=== PATIENT | female | born 1940 | race Caucasian/White ===

== ENCOUNTER → 2020-05-28 | Outpatient (CLI) | payer MEDICARE ==
[~2020-05-28] MED LIST: CALC500T31 PO; CLONAZEPAM1 MG PO; DENO60DI SQ; ESCI5SOL9 PO; LEVO50TA5 PO; LORA10TA3 PO; MELO15TA23 PO; MULT-246 PO; OMEG1CAP50 PO; OMEP20CA16 PO
== END ==
LOC: LAB 12:10
PROVIDERS: ATTEND Surgery
DX: Z01.812 Encounter for preprocedural laboratory examination (principal); Z20.828 Contact with and (suspected) exposure to other viral communicable diseases
CPT/HCPCS: U0003-CS

== ENCOUNTER 2020-06-01 06:15 | Inpatient (IN) | payer MEDICARE ==
[2020-06-01] VITALS (13 sets, daily range): BP systolic 112–143; BP diastolic 59–96
[~2020-06-01] VITALS: Ht 152.4 cm; Wt 68.0 kg
[2020-06-01] MEDS ORDERED: fentaNYL PF VIAL 100 MCG/2 ML VIAL ONE ×3 (06:58→10:28)
[2020-06-01] MEDS ORDERED: ONDANSETRON PF 4 MG/2 ML VIAL. ONE (06:59)
[2020-06-01] MEDS ORDERED: PROPOFOL 10 MG/ML (20ML) VIAL. IV ONE (06:59)
[2020-06-01] MEDS ORDERED: ROCURONIUM 50 MG/5 ML VIAL. ONE (06:59)
[2020-06-01] MEDS ORDERED: IV RINGERS,LACTATED 1000ML 1,000 ML IV SCH (07:00)
[2020-06-01] MEDS ORDERED: PROCHLORPERAZINE 10 MG/2 ML VIAL. IV PRN ×2 (07:00→11:45)
[2020-06-01] MEDS ORDERED: SUCCINYLCHOLINE 200 MG/10 ML VIAL. ONE (07:00)
[2020-06-01] MEDS ORDERED: LIDOCAINE 1% PF 2 ML VIAL. ID PRN (07:00)
[2020-06-01] MEDS ORDERED: fentaNYL PF VIAL 100 MCG/2 ML VIAL IV PRN (07:00)
[2020-06-01] MEDS ORDERED: HYDROmorphone 2 MG/ML VIAL IV PRN (07:00)
[2020-06-01] MEDS ORDERED: LIDOCAINE 2% PF 5 ML VIAL. ONE (07:01)
[2020-06-01] MEDS ORDERED: DEXAMETHASONE SOD PHOS 4 MG/ML VIAL ONE (07:02)
[2020-06-01] MEDS ORDERED: BUPIVACAINE-EPI 0.5%-1:200000 MPF 30 ML VIAL. ONE (07:23)
[2020-06-01] MEDS ORDERED: SURGICEL HEMOSTAT 4X8 EACH. ONE ×2 (07:24)
[2020-06-01] MEDS ORDERED: GLYCOPYRROLATE 1 MG/5 ML VIAL. ONE (07:50)
[2020-06-01] MEDS ORDERED: SEVOFLURANE > 120 MINUTES. IH ONE (07:52)
[2020-06-01] MEDS ORDERED: NEOSTIGMINE 10 MG/10 ML VIAL. ONE (09:27)
[2020-06-01] MEDS: fentaNYL PF VIAL 100 MCG/2 ML VIAL IV PRN ×4 (11:14→13:36)
[2020-06-01] MEDS ORDERED: IV NORMAL SALINE 1000ML BAG 1,000 ML IV SCH (11:32)
--- NOTE | 2020-06-01 11:32 | PDOC4 ---
Operative Note Operative Note Operative Note: Preoperative Diagnosis: Large hiatal hernia with gastroesophageal reflux disease Postoperative Diagnosis: Same Procedure: Laparoscopic repair of large hiatal hernia with Sue fundoplication Surgeon: Eder Rader.: Dr. Cooley Anesthesia: Gen. Estimated Blood Loss: 20 mL Specimen: Hernia sac to pathology Drains: None Complications: None Indications: The patient is a 79 year old female who was referred by the GI service due to a very large hiatal hernia She was referred for surgical repair. The risks of surgery were discussed which include bleeding, infection, recurrent herniation, gastric or esophageal perforation, visceral injury, recurrent reflux, gas bloat syndrome, dysphasia, potential need for additional surgeries or procedures. She understands and would like to proceed. Description: The patient was taken to the operating room and placed supine on the operating table. General anesthesia was performed. The patient was then placed in lithotomy. The abdomen was prepped with ChloraPrep and draped in a standard surgical fashion. A small incision was made superior to and to the patient's left of the umbilicus through which a visualized 5 mm trocar was inserted. A pneumoperitoneum was then created and the laparoscope was introduced. In the right lateral abdomen a 12 mm trocar was inserted through which a soft fan retractor was used to elevate the left lobe of the liver. In the right upper quadrant a 5 mm trocar was inserted. In the left upper quadrant an 11 mm trocar was inserted while in the left lateral abdomen a 5 mm trocar was inserted. Attention was then directed to the diaphragmatic hiatus. As expected there was a very large hiatal hernia defect with virtually all of the stomach present in the chest. A large amount of stomach and omentum was pulled out of the chest and able to be reduced. There was also some transverse colon which was reduced out of the hiatal hernia. An additional 5 mm trocar was placed to assist with exposure and mobilization. We then began mobilizing the entire hernia sac within the mediastinum. We started this on the right side and began freeing up the sac from the right dank. The Harmonic scalpel assisted for much of this dissection. We continued mobilizing the sac superiorly well into the mediastinum. We continued this dissection anteriorly freeing up the sac and its attachments in this location. The dissection then continued along the left dank and the sac and attachments were mobilized here as well. Due to the large size and redundancy of the sac considerable time was required in freeing this out of the mediastinum. Portions of the redundant sac were also fully excised and sent off to pathology as a specimen. The gastrocolic omentum was then opened with the Harmonic scalpel in the upper portion of the greater curvature. We then freed up the upper part of the greater curvature and fundus using the harmonic scalpel. Large blood vessels were doubly clipped and divided. The dissection continued all the way back up to the left dank and any remaining splenic attachments were also mobilized. At this point the esophagus was readily visualized and we were able to free up the area around his gastroesophageal junction. A Divya drain was then placed around the esophagus at the GE junction and clips were applied holding the [place] in place. With retraction on the Divya we were able to continue freeing up any remaining sac attachments particularly in the posterior location. At this point the GE junction was well within the abdominal cavity. The left and right dank were then reapproximated with interrupted 2-0 silk sutures using the Endo Stitch device. Stitches were applied both anteriorly and posteriorly allowing for closure of the hernia defect. We elected to reinforce the closure with a Phasix ST mesh patch. The mesh was tailored to cover and reinforce the crural repair.. The mesh was then introduced and laid up against the diaphragm and around the esophagus. Initial fixation sutures were placed at the superior corners of the mesh using 2-0 silk. The entire mesh was then fixed to the diaphragm using the Tisseel fibrin glue. The fundus was then wrapped around in a 360 fashion creating the fundoplication. A shoeshine maneuver was used to ensure no twists or kinks. An initial 2-0 Ethibond suture was used securing the fundic lips together. Another suture was placed superior to this which incorporated a small bite of the anterior esophagus. An additional suture was then placed inferiorly completing the fundoplication. The wrap was sutured to the diaphragm muscles on both side of the fundoplication to assist with fixation. At this point hemostasis was good, the hernia was well repaired with good coverage from the mesh, and the fundoplication was intact with a nice orientation. The 11 and 12 mm trochars were then removed and the fascia closed with 0 Vicryl using an Endo Close. The remaining ports were removed and the pneumoperitoneum was relieved. Skin at all incisions was closed with 4-0 Monocryl. Steri-Strips and dressings were applied. The patient tolerated the procedure well. LEA FITZGERALD MD Jun 01, 2020 11:32
[2020-06-01] MEDS ORDERED: 0.9 % SODIUM CHLORIDE 10 ML DISP.SYRIN. IV PRN (11:45)
[2020-06-01] MEDS ORDERED: NALOXONE 0.4 MG/ML VIAL. IV PRN (11:45)
[2020-06-01] MEDS: MORPHINE SULFATE 2 MG/ML VIAL. IV PRN ×2 (11:54→12:03)
[2020-06-01] MEDS: HYDROmorphone 2 MG/ML VIAL IV PRN ×2 (14:58→20:21)
[2020-06-01] MEDS: IV 1/2 NORMAL SALINE 1,000 ML IV SCH (17:00)
[2020-06-02 03:00] VITALS: BP 126/75
[2020-06-02] MEDS: IV 1/2 NORMAL SALINE 1,000 ML IV SCH ×2 (04:53→16:56)
[2020-06-02 07:00] VITALS: BP 134/71
[2020-06-02] MEDS ORDERED: HYDROcodon/APAP 7.5/325MG ORAL 15 ML SOLUTION PO PRN (07:30)
[2020-06-02] MEDS: HYDROmorphone 2 MG/ML VIAL IV PRN (08:04)
--- NOTE | 2020-06-02 09:19 | NUR ---
SW following. Discussed with RN, pt from home, clear liquid diet. Pt was on room air, but is now requiring oxygen again - RN attempting to titrate. SW will continue to follow for any discharge planning needs.
[2020-06-02] MEDS: HYDROcodon/APAP 7.5/325MG ORAL 15 ML SOLUTION PO PRN ×3 (10:50→22:01)
[2020-06-02 11:00] VITALS: BP 134/74
[2020-06-02] MEDS: ONDANSETRON PF 4 MG/2 ML VIAL. IVP PRN (12:09)
--- NOTE | 2020-06-02 12:11 | PDOC ---
CARL BROWNE APRN 06/02/20 1211: SURGICAL PROGRESS NOTE DATE: 06/02/20 TIME: 12:10 Subjective taking clears no reflux pretty sore has not walked yet some shoulder pain Vital Signs Vital Signs Date Time Temp Pulse Resp B/P (MAP) Pulse Ox O2 Delivery O2 Flow Rate FiO2 06/02/20 11:00 98.4 89 16 134/74 (94) 95 Room Air 98.4 06/02/20 10:50 2.0 I&O Intake and Output 06/02/20 06:59 Intake Total 3900 ml Output Total 245 ml Balance 3655 ml Intake Oral 90 ml IV Total 2730 ml Other 1080 ml Output Urine Total 225 ml Estimated Blood Loss 20 ml # Voids 1 General: Alert, Oriented X3, Cooperative Abdomen: Soft, Other (lap sites c/d/i) Assessment/Plan clears, ambulate wean off o2 Justicifation of Admission Dx: Justifications for Admission: Justification of Admission Dx: Yes Comments: s/p edis fundoplication LEA FITZGERALD MD 06/02/20 1300: SURGICAL PROGRESS NOTE Assessment/Plan Reviewed, agree with above CARL BROWNE APRN Jun 02, 2020 12:11 LEA FITZGERALD MD Jun 02, 2020 13:00
[2020-06-02 15:00] VITALS: BP 135/78
--- NOTE | 2020-06-02 18:06 | PATHOLOGY ---
[facility] Accession Number: [id number] . 01 Material submitted: . hernia - HIATAL HERNIA SAC . 01 Clinical history: . HIATAL HERNIA . 02 Diagnosis: Segments of fibromembranous and fibroadipose tissue, laparoscopic hiatal hernia repair: - Hernia sac, with small lymph node showing reactive changes identified. (JPM:certified nurse practitioner; 06/02/2020) MBR 06/02/2020 1553 Local . 02 Electronically signed: . Uday Mcgee MD, Pathologist NPI- [id number] . 01 Gross description: . The specimen is received in formalin, labeled "Marsha Traore, hiatal hernia sac" and consists of multiple segments of pink membranous tissue with attached yellow lobulated tissue measuring 5.8 x 5.5 x 2.0 cm. No gross lesions are identified and administrative representative tissue is submitted in A1. (SDY; 06/01/2020) SYU/SYU 06/02/2020 1551 Local . 02 Pathologist provided ICD-10: K44.9 . 02 CPT . 681579 Specimen Comment: A courtesy copy of this report has been sent to [phone] Specimen Comment: [id number] Specimen Comment: Report sent to / DR RIZVI Performed at: 01 [facility] [address], [place], [place] [id number] MD Tyrone Nickerson MD Phone: [phone] Performed at: 02 [facility] [address] [place], [place] [id number] MD Uday Mcgee MD Phone: [phone]
[2020-06-02 19:00] VITALS: BP 146/66
[2020-06-02 23:00] VITALS: BP 114/66
[2020-06-03] MEDS: IV 1/2 NORMAL SALINE 1,000 ML IV SCH ×3 (01:21→23:35)
[2020-06-03 03:00] VITALS: BP 124/60
--- NOTE | 2020-06-03 03:00 | NUR ---
RN tried to titrate patient down from her oxygen but her oxygen saturation was down to 80% on room air during 0300 vitals. 1L NC was placed back on patient. Will continue to monitor.
[2020-06-03] MEDS: HYDROcodon/APAP 7.5/325MG ORAL 15 ML SOLUTION PO PRN ×2 (05:35→20:26)
[2020-06-03 07:00] VITALS: BP 119/75
--- NOTE | 2020-06-03 09:31 | NUR ---
SW following. Discussed with RN, pt not able to titrate off oxygen. Pt will need a 6 minute walk prior to discharge. SW will continue to follow.
--- NOTE | 2020-06-03 09:39 | PDOC ---
CARL BROWNE APRN 06/03/20 0939: SURGICAL PROGRESS NOTE DATE: 06/03/20 TIME: 09:37 Subjective + flatus tolerating clears no nausea, no reflux coughing up some sputum Vital Signs Vital Signs Date Time Temp Pulse Resp B/P (MAP) Pulse Ox O2 Delivery O2 Flow Rate FiO2 06/03/20 07:32 Nasal Cannula 1.0 06/03/20 07:00 97.9 91 18 119/75 (90) 91 97.9 I&O Intake and Output 06/03/20 06:59 Intake Total 0 ml Balance 0 ml Intake Oral 0 ml # Voids 6 General: Alert, Oriented X3, Cooperative Abdomen: Soft, Other (lap sites c/d/i) Assessment/Plan unable to wean off o2 will check cxr, 6 min walk--if abnormal will consult pulm Full liquid diet Justicifation of Admission Dx: Justifications for Admission: Justification of Admission Dx: Yes LEA FITZGERALD MD 06/03/20 1023: SURGICAL PROGRESS NOTE Assessment/Plan agree with above CARL BRWONE APRN Jun 03, 2020 09:39 LEA FITZGERALD MD Jun 03, 2020 10:23
[2020-06-03 11:00] VITALS: BP 117/63
[2020-06-03] MEDS: ONDANSETRON PF 4 MG/2 ML VIAL. IVP PRN (11:53)
--- NOTE | 2020-06-03 13:43 | RAD ---
EXAM: CHEST PA LATERAL INDICATION: Reason: hypoxia / Spl. Instructions: / History: . TECHNIQUE: PA and lateral views COMPARISON: None FINDINGS: Heart is moderately enlarged The great vessels appear unremarkable. There is no hilar or mediastinal mass. Lungs show ill-defined opacity in the left midlung, superimposed on generalized hyperlucency. There is more focal consolidation of the medial left lung base. Bilateral pleural effusions are present, left greater than right. No pneumothorax. There are no significant osseous abnormalities. Surgical clips in the left upper quadrant abdomen are present. IMPRESSION: COPD and cardiomegaly with left basilar consolidation that could represent pneumonia or pneumonitis. There are also bilateral pleural effusions but no pneumothorax. Electronically signed by: Sharon Marina MD (06/03/2020 1:39 PM) [id number]
[2020-06-03 15:00] VITALS: BP 122/76
[2020-06-03] MEDS ORDERED: FUROSEMIDE 20 MG/2 ML VIAL. IVP ONE (15:30)
[2020-06-03 17:29] LABS: CALCIUM 7.5 mg/dL (8.5-10.1); CREATININE 0.5 mg/dL (0.6-1.0); GFR 119.6
[2020-06-03 17:30] LABS: POTASSIUM 3.5 mmol/L (3.5-5.1)
[2020-06-03 19:00] VITALS: BP 143/71
[2020-06-03 23:00] VITALS: BP 135/54
[2020-06-04 03:00] VITALS: BP 119/57
[2020-06-04 07:00] VITALS: BP 122/59
[2020-06-04] MEDS: IV 1/2 NORMAL SALINE 1,000 ML IV SCH ×2 (08:03→21:49)
--- NOTE | 2020-06-04 09:24 | NUR ---
SW following. Discussed with RN, pt did not pass the 6 minute walk yesterday - pulmonology consulted. Pt having a chest CT and echo today. Has been started on some oral abx, and will need to repeat the 6 minute walk. PT/OT recommending home health. SW will continue to follow.
--- NOTE | 2020-06-04 09:30 | CONS ---
DATE OF CONSULTATION: PULMONARY CONSULTATION ATTENDING PHYSICIAN: Bharat Gaines MD REASON FOR CONSULTATION: Hypoxia. HISTORY OF PRESENT ILLNESS: The patient is a 79-year-old female who has 15 years of tobacco use, but quit 42 years ago. She was admitted for an elective hernia surgery. The patient underwent laparoscopic repair of large hiatal hernia with Sue fundoplication on 06/01. The patient states since the next day after surgery, she has been experiencing some shortness of breath with exertion. She also feels that she had some pain in the upper part of the chest, which is pleuritic in nature. She has mild cough with some light green sputum production. No leg pain. No focal weakness. No nausea, vomiting or diarrhea. She has no fever. I have reviewed the patient's chest x-ray and it shows some small basal pleural effusions with cardiomegaly. Consultation requested for further evaluation and management. PAST MEDICAL HISTORY: Minimal history of tobacco use and large hiatal hernia. PAST SURGICAL HISTORY: Laparoscopic repair of large hiatal hernia with Sue fundoplication. ALLERGIES: CODEINE. MEDICATIONS: Reviewed as listed in the MRAD. REVIEW OF SYSTEMS: Twelve-point system obtained. Pertinent positives discussed in my history of present illness, otherwise noncontributory. All systems that were negative were reviewed as well. SOCIAL HISTORY: Smoked for 15 years before quitting. She quit about 40 years ago. FAMILY HISTORY: Noncontributory to lungs. PHYSICAL EXAMINATION: VITAL SIGNS: Reviewed. They are stable. She is on 2 liters with saturations in the 90s. HEENT: Sclerae nonicteric. NECK: Supple. LUNGS: With diminished breath sounds, no wheezing. CARDIOVASCULAR: With a regular rate. ABDOMEN: Mildly tender. EXTREMITIES: With no pitting edema. LABORATORY DATA: Reviewed. Sodium 137, potassium 3.5, BUN 7 and creatinine 0.5. IMPRESSION: 1. Acute hypoxic respiratory failure, postoperative with pleuritic chest pain. She has very minimal tobacco history. She has an abnormal chest x-ray with tiny pleural effusion and some atelectasis in the left base. She has a cough with green sputum production. The differential diagnosis would include the following: A. Need to rule out thromboembolic disease. B. Mild congestive heart failure. C.. Acute bronchitis/postoperative atelectasis. 2. Status post laparoscopic large hiatal hernia surgery with Sue fundoplication. RECOMMENDATIONS: 1. Discussed with the patient and RN. At this time, I would like to do a CTA chest. 2. Bronchodilators to continue. 3. Incentive spirometry. 4. Add empiric antibiotic. 5. We will review the CT chest and make further recommendations. 6. She may need to repeat a 6-minute walk test before discharge. 7. ECHO/ Troponin level RAKAN BOYD MD DR: MAUREEN/judy JOB#: [id number] / [id number] MARYURI
[2020-06-04] MEDS: DOXYCYCLINE HYCLATE 100 MG TABLET PO SCH ×2 (09:43→20:55)
[2020-06-04] MEDS ORDERED: CONTRAST GIVEN. MC PRN (09:45)
[2020-06-04] MEDS ORDERED: IOHEXOL 350 MG/ML 100 ML VIAL. IV ONE (09:45)
--- NOTE | 2020-06-04 10:14 | PDOC ---
CARL BROWNE STRATEGIC BUSINESS DEVELOPMENT 06/04/20 1014: SURGICAL PROGRESS NOTE DATE: 06/04/20 TIME: 10:13 Subjective pulmonary work up in progress tolerating diet + flatus pain managed Vital Signs Vital Signs Date Time Temp Pulse Resp B/P (MAP) Pulse Ox O2 Delivery O2 Flow Rate FiO2 06/04/20 07:38 Nasal Cannula 2.0 06/04/20 07:00 97.9 81 16 122/59 (80) 94 97.9 I&O Intake and Output 06/04/20 07:00 Intake Total 480 ml Output Total 0 ml Balance 480 ml Intake Oral 480 ml Output Urine Total 0 ml # Voids 4 General: Alert, Oriented X3, Cooperative Abdomen: Soft, Other (ND, lap sites c/d/i) Labs Laboratory Tests Test 06/03/20 16:10 Sodium Level 137 mmol/L (136-145) Potassium Level 3.5 mmol/L (3.5-5.1) Chloride Level 102 mmol/L (98-107) Carbon Dioxide Level 29 mmol/L (21-32) Anion Gap 6 (6-14) Blood Urea Nitrogen 7 mg/dL (7-20) Creatinine 0.5 mg/dL (0.6-1.0) Estimated GFR (Cockcroft-Gault) 119.6 Glucose Level 99 mg/dL (70-99) Calcium Level 7.5 mg/dL (8.5-10.1) Laboratory Tests Test 06/03/20 16:10 Sodium Level 137 mmol/L (136-145) Potassium Level 3.5 mmol/L (3.5-5.1) Chloride Level 102 mmol/L (98-107) Carbon Dioxide Level 29 mmol/L (21-32) Anion Gap 6 (6-14) Blood Urea Nitrogen 7 mg/dL (7-20) Creatinine 0.5 mg/dL (0.6-1.0) Estimated GFR (Cockcroft-Gault) 119.6 Glucose Level 99 mg/dL (70-99) Calcium Level 7.5 mg/dL (8.5-10.1) Assessment/Plan await pulm work up prior to discharge Justicifation of Admission Dx: Justifications for Admission: Justification of Admission Dx: Yes FERMIN JOSÉ MD 06/04/20 1403: SURGICAL PROGRESS NOTE Assessment/Plan Agree with Keith assessment plan CARL BROWNE APRN Jun 04, 2020 10:14 FREMIN JOSÉ MD Jun 04, 2020 14:03
[2020-06-04 11:00] VITALS: BP 124/60
[2020-06-04 15:00] VITALS: BP 122/62
--- NOTE | 2020-06-04 15:14 | RAD ---
EXAM: CT Pulmonary Angiogram INDICATION: Reason: CP/DYSPNEA / Spl. Instructions: omni 350 90ml GETTING NEW IV / History: TECHNIQUE: Multi-detector row images were acquired from the thoracic inlet through the upper abdomen with the use of IV contrast. Sagittal and coronal images were acquired from the transaxial data. MIP images of the pulmonary arteries were obtained. All CT scans performed at this facility utilize dose optimization techniques as appropriate to the exam, including the following: Automated exposure control and adjustment of the mA and/or KV according to patient size (this includes techniques or standardized protocols for targeted exams where dose is indication/reason for exam). IV CONTRAST: Administered COMPARISON: Chest x-ray 06/03/2020 FINDINGS: PULMONARY ARTERIES: No pulmonary emboli are identified. CARDIOVASCULAR: Unremarkable Aorta is normal caliber. MEDIASTINUM & NICOLE: Partially fluid-filled thoracic esophagus is present with layering density in the distal thoracic esophagus (images 68 through 71 on axial series 3) that could represent ingested material or intraluminal hemorrhage. The posterior mediastinum contains fluid and a small focus of extraluminal gas (image 66 axial series 3), resulting in poor visualization of the thoracic esophageal wall. No adenopathy or masses identified. Additional tiny foci of gas are identified in the epicardial fat more anteriorly. LUNGS: Lobar atelectasis of the left lower lobe with minimal sparing of the apical segment is present along with significant atelectasis of the right lower lobe and more generalized mild interlobular septal thickening and underlying centrilobular pattern emphysema. PLEURAL SPACE: Moderate bilateral pleural effusions. No pneumothorax. OSSEOUS & SOFT TISSUE: Unremarkable ABDOMEN: Postsurgical changes in the left upper quadrant abdomen suggesting air previous fundoplication are present with fluid around the surgical sutures near the hiatus. Incidental tiny accessory left hepatic artery. IMPRESSION: 1. No pulmonary emboli. 2. Pneumomediastinum and fluid surrounding the distal thoracic esophagus along with bilateral pleural effusions in the setting of gastric fundoplication. Correlate for any relevant symptoms. If a Cyndee-Walsh tear or Boerhaave syndrome is suspected, further imaging evaluation could be pursued with an esophagogram.. Electronically signed by: Sharon Marina MD (06/04/2020 3:11 PM) [id number]
--- NOTE | 2020-06-04 15:15 | CARD ---
MR#: [id number] Date of Study: 06/04/2020 Ordering Physician: RAKAN BOYD, Referring Physician: RAKAN BOYD, Tech: Agueda Arcos APPROVED REPORT EXAM: Two-dimensional and M-mode echocardiogram with Doppler and color Doppler. Other Information Quality : AverageHR: 94bpm INDICATION Cardiomegaly 2D DIMENSIONS RVDd3.7 (2.9-3.5cm)Left Atrium(2D)3.4 (1.6-4.0cm) IVSd1.4 (0.7-1.1cm)Aortic Root(2D)3.3 (2.0-3.7cm) LVDd4.0 (3.9-5.9cm)LVOT Diameter2.0 (1.8-2.4cm) PWd1.1 (0.7-1.1cm)LVDs2.3 (2.5-4.0cm) FS (%) 41.8 %SV50.5 ml Aortic Valve AoV Peak Ari.153.2cm/sAoV VTI24.1cm AO Peak GR.9.4mmHgLVOT Peak Ari.110.6cm/s LVOT VTI 21.25cmAO Mean GR.5mmHg GAURAV (VMAX)1.92dw6XSO (VTI)2.83cm2 AI P 1/2 Iufw117yr Mitral Valve MV E Etpocsci46.9cm/sMV DECEL JMVN075up MV A Oibqgtjf64.0cm/sMV E Mean Gr.2mmHg MV BLB49xpM/A Ratio0.6 MVA (PHT)3.33cm2 TDI E/Lateral E'7.3E/Medial E'8.5 Pulmonary Valve PV Peak Pkqgxmhj44.1cm/sPV Peak Grad.4mmHg Tricuspid Valve TR P. Fefdmafh381mn/sRAP JWGZBKOL3ztUe TR Peak Gr.83uyOuDJVT49bwJo Pulmonary Vein S1 Flmsiubo09.5cm/sD2 Iuosenia51.5cm/s PVa lzaonbxi634lwhu LEFT VENTRICLE The left ventricle is normal size. There is mild to moderate concentric left ventricular hypertrophy. The left ventricular systolic function is normal and the ejection fraction is within normal range. T he Ejection Fraction is 55-60%. There is normal LV segmental wall motion. Transmitral Doppler flow pa ttern is Grade I-abnormal relaxation pattern. RIGHT VENTRICLE The right ventricle is borderline dilated. There is normal right ventricular wall thickness. The righ t ventricular systolic function is normal. ATRIA The left atrium size is normal. The right atrium is borderline dilated. The interatrial septum is int act with no evidence for an atrial septal defect or patent foramen ovale as noted on 2-D or Doppler i maging. AORTIC VALVE The aortic valve is normal in structure and function. Doppler and Color Flow revealed mild aortic reg urgitation. Calculated aortic valve area is 2.28 cm2 with maximum pressure gradient of 12 mmHg and me an pressure gradient of 6 mmHg. There is no significant aortic valvular stenosis. MITRAL VALVE The mitral valve is thickened but opens well. There is no evidence of mitral valve prolapse. There is no mitral valve stenosis with an man gradient of 2.1 mmHg. Doppler and Color-flow revealed trace brodie ral regurgitation. TRICUSPID VALVE The tricuspid valve is normal in structure and function. Doppler and Color Flow revealed moderate tri cuspid regurgitation with an estimated PAP of 80 mmHg. There is no tricuspid valve stenosis. PULMONIC VALVE The pulmonic valve is not well visualized. Doppler and Color Flow revealed trace to mild pulmonic timothy vular regurgitation. GREAT VESSELS The aortic root is normal in size. The ascending aorta is normal in size. The IVC is normal in size a nd collapses >50% with inspiration. PERICARDIAL EFFUSION There is no evidence of significant pericardial effusion. Critical Notification Critical Value: No <Conclusion> The left ventricle is normal size. The left ventricular systolic function is normal and the ejection fraction is within normal range. The Ejection Fraction is 55-60%. There is mild to moderate concentric left ventricular hypertrophy. Doppler and Color Flow revealed mild aortic regurgitation. There is no significant aortic valvular stenosis. Doppler and Color-flow revealed trace mitral regurgitation. Doppler and Color Flow revealed moderate tricuspid regurgitation with an estimated PAP of 80 mmHg. Signed by : Rios Wang MD Electronically Approved : 06/04/2020 15:14:23
[2020-06-04 19:00] VITALS: BP 149/65
[2020-06-04] MEDS: HYDROcodon/APAP 7.5/325MG ORAL 15 ML SOLUTION PO PRN (19:31)
[2020-06-04 23:00] VITALS: BP 110/47
[2020-06-05 03:00] VITALS: BP 104/58
[2020-06-05 07:00] VITALS: BP 114/49
[2020-06-05] MEDS: IV 1/2 NORMAL SALINE 1,000 ML IV SCH ×2 (08:56→20:03)
--- NOTE | 2020-06-05 09:04 | PDOC ---
CARL BROWNE APRN 06/05/20 0904: SURGICAL PROGRESS NOTE DATE: 06/05/20 TIME: 09:03 Subjective tolerating diet no reflux coughing some still Vital Signs Vital Signs Date Time Temp Pulse Resp B/P (MAP) Pulse Ox O2 Delivery O2 Flow Rate FiO2 06/05/20 07:00 98.4 72 18 114/49 (70) 95 Room Air 98.4 06/05/20 03:00 2.0 I&O Intake and Output 06/05/20 07:00 Intake Total 510 ml Balance 510 ml Intake Oral 510 ml # Voids 7 General: Alert, Oriented X3, Cooperative Abdomen: Soft, Other (lap sites c/d/i, no erythema ) Labs Laboratory Tests Test 06/03/20 16:10 06/04/20 10:31 Sodium Level 137 mmol/L (136-145) Potassium Level 3.5 mmol/L (3.5-5.1) Chloride Level 102 mmol/L (98-107) Carbon Dioxide Level 29 mmol/L (21-32) Anion Gap 6 (6-14) Blood Urea Nitrogen 7 mg/dL (7-20) Creatinine 0.5 mg/dL (0.6-1.0) Estimated GFR (Cockcroft-Gault) 119.6 Glucose Level 99 mg/dL (70-99) Calcium Level 7.5 mg/dL (8.5-10.1) Troponin I Quantitative 0.237 ng/mL (0.000-0.055) Laboratory Tests Test 06/04/20 10:31 Troponin I Quantitative 0.237 ng/mL (0.000-0.055) Assessment/Plan await pulm FU ct chest reviewed Justicifation of Admission Dx: Justifications for Admission: Justification of Admission Dx: Yes FERMIN JOSÉ MD 06/05/20 1108: SURGICAL PROGRESS NOTE Assessment/Plan Reviewed CT scan appears to be postoperative changes agree with Keith assessment plan for discharge CARL BROWNE APRN Jun 05, 2020 09:04 FERMIN JOSÉ MD Jun 05, 2020 11:08
[2020-06-05] MEDS ORDERED: HYDR15SO6 PO (09:07)
--- NOTE | 2020-06-05 09:09 | DISCH ---
DISCHARGE INSTRUCTIONS Condition on Discharge Condition on Discharge: Stable Activity After Discharge Activity Instructions for Disc: Activity as tolerated Other activity instructions: shower, no tub baths Lifting Instructions after Dis: No pulling or pushing Driving Instructions after Dis: Do not drive Diet after Discharge Diet after Discharge: Full Liquid (no carbonated drinks ) Wound Incision Care Wound/Incision Care: May get incision wet, No wound care needed Contacting the after DC Call your doctor for: Concerns you may have Follow-Up Follow up with: Dr Gaines 2 weeks, call to schedule [phone] CARL BROWNE APRN Jun 05, 2020 09:09
[2020-06-05] MEDS: DOXYCYCLINE HYCLATE 100 MG TABLET PO SCH ×2 (09:17→20:31)
--- NOTE | 2020-06-05 09:29 | PDOC ---
PULMONARY PROGRESS NOTES DATE: 06/05/20 TIME: 09:26 Subjective LESS cp NO SOA Vitals Vital Signs Date Time Temp Pulse Resp B/P (MAP) Pulse Ox O2 Delivery O2 Flow Rate FiO2 06/05/20 07:00 98.4 72 18 114/49 (70) 95 Room Air 98.4 06/05/20 03:00 2.0 General: Alert, No acute distress Lungs: Clear Cardiovascular: S1 Abdomen: Soft Neuro Exam: Alert Extremities: No Edema Skin: Warm Labs Laboratory Tests Test 06/03/20 16:10 06/04/20 10:31 Sodium Level 137 mmol/L (136-145) Potassium Level 3.5 mmol/L (3.5-5.1) Chloride Level 102 mmol/L (98-107) Carbon Dioxide Level 29 mmol/L (21-32) Anion Gap 6 (6-14) Blood Urea Nitrogen 7 mg/dL (7-20) Creatinine 0.5 mg/dL (0.6-1.0) Estimated GFR (Cockcroft-Gault) 119.6 Glucose Level 99 mg/dL (70-99) Calcium Level 7.5 mg/dL (8.5-10.1) Troponin I Quantitative 0.237 ng/mL (0.000-0.055) Laboratory Tests Test 06/04/20 10:31 Troponin I Quantitative 0.237 ng/mL (0.000-0.055) Medications Active Scripts Medications Dose Route/Sig Max Daily Dose Days Date Category Hydrocodone-Apap 7.5-325/15 Soln (Hydrocodone Bit/Acetaminophen) 15 Ml Solution 10 Ml PO PRN Q6HRS PRN 06/05/20 Rx Loratadine 10 Mg Tablet 1 Tab PO DAILY 05/28/20 Reported Calcium Carbonate 500 Mg Tablet 1 Tab PO BID 30 05/28/20 Reported Multi-Vitamin Daily (Multivitamin) 1 Each Tablet 1 Tab PO DAILY 30 05/28/20 Reported Fish Oil 1,000 Mg Softgel ([place]-3 Fatty Acids/Fish Oil) 1 Each Capsule 1 Cap PO DAILY 30 05/28/20 Reported Prolia (Denosumab) 60 Mg/1 Ml Disp.syrin 1 Syr SQ Q6 MONTHS 1 05/28/20 Reported Omeprazole 20 Mg Capsule.dr 1 Cap PO DAILY 05/28/20 Reported Meloxicam 15 Mg Tablet 1 Tab PO DAILY 30 05/28/20 Reported Levothyroxine Sodium 50 Mcg Tablet 1 Tab PO DAILY 05/28/20 Reported Escitalopram Oxalate 5 Mg/5 Ml Solution 10 Mg PO DAILY 05/28/20 Reported Impression . 1. Acute hypoxic respiratory failure, postoperative with pleuritic chest pain. She has very minimal tobacco history. She has an abnormal chest x-ray with tiny pleural effusion and some atelectasis in the left base. She has a cough with green sputum production. The differential diagnosis would include the following: A. Need to rule out thromboembolic disease. B. Mild congestive heart failure. C.. Acute bronchitis/postoperative atelectasis. 2. Status post laparoscopic large hiatal hernia surgery with Sue fundoplication. Plan . 1. Discussed with the patient and RN. At this time,CTA chest reviewed. No PE. small post Pneumomediastinum.Surgery to make rec regarding is it expected post - op small effusions /atelectasis 2. Bronchodilators to continue. 3. Incentive spirometry. 4. empiric antibiotic. 5. If surgery is ok, she can go home 6. repeat a 6-minute walk test before discharge. 7. ECHO/ Troponin level RAKAN BOYD MD Jun 05, 2020 09:29
[2020-06-05] MEDS ORDERED: DOXY100T PO (09:47)
--- NOTE | 2020-06-05 10:26 | NUR ---
SW following. Discussed with RN, discharge order for home with self care, pt no longer needing oxygen. RN advised no SW needs at this time.
[2020-06-05] MEDS: ONDANSETRON PF 4 MG/2 ML VIAL. IVP PRN ×2 (10:43→14:21)
[2020-06-05 11:00] VITALS: BP 112/50
[2020-06-05 15:00] VITALS: BP 163/86
[2020-06-05 19:00] VITALS: BP 116/65
[2020-06-05 23:00] VITALS: BP 124/69
[2020-06-06 03:00] VITALS: BP 125/54
[2020-06-06 07:00] VITALS: BP 151/73
[2020-06-06] MEDS: IV 1/2 NORMAL SALINE 1,000 ML IV SCH (07:10)
[2020-06-06] MEDS: DOXYCYCLINE HYCLATE 100 MG TABLET PO SCH (08:20)
--- NOTE | 2020-06-06 08:39 | PDOC ---
PULMONARY PROGRESS NOTES DATE: 06/06/20 TIME: 08:38 Subjective denies sob, has some chest discomfort much improved, has cough not worse Vitals Vital Signs Date Time Temp Pulse Resp B/P (MAP) Pulse Ox O2 Delivery O2 Flow Rate FiO2 06/06/20 07:00 98.4 80 18 151/73 (99) 93 Room Air 98.4 General: Alert, No acute distress Lungs: Clear Cardiovascular: S1, S2 Abdomen: Soft, Non-tender Neuro Exam: Alert Extremities: No Edema Skin: Warm Labs Laboratory Tests Test 06/04/20 10:31 Troponin I Quantitative 0.237 ng/mL (0.000-0.055) Medications Active Scripts Medications Dose Route/Sig Max Daily Dose Days Date Category Hydrocodone-Apap 7.5-325/15 Soln (Hydrocodone Bit/Acetaminophen) 15 Ml Solution 10 Ml PO PRN Q6HRS PRN 06/05/20 Rx Loratadine 10 Mg Tablet 1 Tab PO DAILY 05/28/20 Reported Calcium Carbonate 500 Mg Tablet 1 Tab PO BID 30 05/28/20 Reported Multi-Vitamin Daily (Multivitamin) 1 Each Tablet 1 Tab PO DAILY 30 05/28/20 Reported Fish Oil 1,000 Mg Softgel ([place]-3 Fatty Acids/Fish Oil) 1 Each Capsule 1 Cap PO DAILY 30 05/28/20 Reported Prolia (Denosumab) 60 Mg/1 Ml Disp.syrin 1 Syr SQ Q6 MONTHS 1 05/28/20 Reported Omeprazole 20 Mg Capsule. 1 Cap PO DAILY 05/28/20 Reported Meloxicam 15 Mg Tablet 1 Tab PO DAILY 30 05/28/20 Reported Levothyroxine Sodium 50 Mcg Tablet 1 Tab PO DAILY 05/28/20 Reported Escitalopram Oxalate 5 Mg/5 Ml Solution 10 Mg PO DAILY 05/28/20 Reported Comments reviewed cta of chest 1. No pulmonary emboli. 2. Pneumomediastinum and fluid surrounding the distal thoracic esophagus along with bilateral pleural effusions in the setting of gastric fundoplication. Correlate for any relevant symptoms. If a Cyndee-Walsh tear or Boerhaave syndrome is suspected, further imaging evaluation could be pursued with an esophagogram.. Impression . 1. Acute hypoxic respiratory failure, postoperative with pleuritic chest pain. She has very minimal tobacco history. She has an abnormal chest x-ray with tiny pleural effusion and some atelectasis in the left base. She has a cough with green sputum production. The differential diagnosis would include the following: A. no thromboembolic disease. B. Mild congestive heart failure. C.. Acute bronchitis/postoperative atelectasis. 2. Status post laparoscopic large hiatal hernia surgery with Sue fundoplication. Plan . 1. Discussed with the patient and RN. At this time,CTA chest reviewed. No PE. small post Pneumomediastinum.Surgery to make rec regarding is it expected post - op small effusions /atelectasis 2. Bronchodilators to continue. 3. Incentive spirometry. the importance of use discussed 4. empiric antibiotic. 5. If surgery is ok, she can go home 6. repeat a 6-minute walk test before discharge. 7. ECHO/ Troponin level discussed w CAROL Larsen pt, MD Jun 06, 2020 08:39
[2020-06-06 11:00] VITALS: BP 134/62
--- NOTE | 2020-06-06 11:50 | NUR ---
Discharge Note: ERNESTO JOHNSON Discharge instructions and discharge home medications reviewed with patient and a copy given. All questions have been answered and understanding verbalized. The following instructions and handouts were given: Take home meds as directed Full liquid diet until follow up with surgeon. May shower, no tub baths. Watch out for severe abdominal pain, nausea, vomiting, and fever. Follow up with Dr. Gaines in 2 weeks. Follow up with Dr. Quiroga as needed. Discontinued lines and drains: peripheral IV intact, patient tolerated removal, no complications noted. Patient discharged to home with self-care via wheelchair accompanied by family member at 1130. Walker released to the patient.
--- NOTE | 2020-06-09 11:25 | PDOC3 ---
Discharge Summary Visit Information Date of Admission: Jun 03, 2020 Date of Discharge: Jun 06, 2020 Admitting Diagnosis: Large hiatal hernia with gastroesophageal reflux disease Final Diagnosis Large hiatal hernia with gastroesophageal reflux disease Brief Hospital Course Allergies Allergies Coded Allergies Type Severity Reaction Last Updated Verified codeine Allergy Intermediate 06/01/20 Yes Brief Hospital Course Ms. Traore is a 79 old female who underwent Laparoscopic repair of large hiatal hernia with Sue fundoplication. Postoperatively pain managed. She was tolerating a full liquid diet. She did have issues with hypoxia and pulmonary consultation was obtained. At discharge pain managed, tolerating diet, and did not require any 02 needs Discharge Information Condition at Discharge: Stable Follow Up: Weeks (2) Disposition/Orders: D/C to Home Scheduled Calcium Carbonate (Calcium Carbonate) 500 Mg Tablet, 1 TAB PO BID for supplement for 30 Days, #60 Ref 0 (Reported) Entered as Reported by: KARAN SHELL on 05/28/20 1344 Last Taken: Unknown Dose on 05/25/20 Last Action: Last Taken Edited on 06/01/20642 by KRISTINA HAMILTON Denosumab (Prolia) 60 Mg/1 Ml Disp.syrin, 1 SYR SQ q6 months for osteoporosis for 1 Days, #1 Ref 0 (Reported) Entered as Reported by: KARAN SHELL on 05/28/20 1342 Last Taken: Unknown Dose on 04/01/20 Last Action: Last Taken Edited on 06/01/20642 by KRISTINA HAMILTON Doxycycline Hyclate (Doxycycline Hyclate) 100 Mg Tablet, 100 MG PO BID for pneumonia for 7 Days, #14 Prescribed by: Carl Jordan on 06/05/20 0947 Escitalopram Oxalate (Escitalopram Oxalate) 5 Mg/5 Ml Solution, 10 MG PO DAILY for depression, (Reported) Entered as Reported by: KARAN SHELL on 05/28/20 1340 Last Taken: Unknown Dose on 05/31/20 Last Action: Last Taken Edited on 06/01/20642 by KRISTINA HAMILTON Levothyroxine Sodium (Levothyroxine Sodium) 50 Mcg Tablet, 1 TAB PO DAILY for hypothyroidism, #30 Ref 5 (Reported) Entered as Reported by: KARAN SHELL on 05/28/20 1341 Last Taken: Unknown Dose on 06/01/20 0500 Last Action: Last Taken Edited on 06/01/20642 by KRISTINA HAMILTON Loratadine (Loratadine) 10 Mg Tablet, 1 TAB PO DAILY for allergies, #30 Ref 5 (Reported) Entered as Reported by: KARAN SHELL on 05/28/201343 Last Taken: Unknown Dose on 05/31/20 Last Action: Last Taken Edited on 06/01/20642 by KRISTINA HAMILTON Meloxicam (Meloxicam) 15 Mg Tablet, 1 TAB PO DAILY for arthritis for 30 Days, #30 Ref 0 (Reported) Entered as Reported by: KARAN SHELL on 05/28/20 134 Last Taken: Unknown Dose on 05/31/20 Last Action: Last Taken Edited on 06/01/20642 by KRISTINA HAMILTON Multivitamin (Multi-Vitamin Daily) 1 Each Tablet, 1 TAB PO DAILY for supplement for 30 Days, #30 Ref 0 (Reported) Entered as Reported by: KARAN SHELL on 05/28/201342 Last Taken: Unknown Dose on 05/25/20 Last Action: Last Taken Edited on 06/01/20642 by KRISTINA HAMILTON [place]-3 Fatty Acids/Fish Oil (Fish Oil 1,000 Mg Softgel) 1 Each Capsule, 1 CAP PO DAILY for supplement for 30 Days, #30 Ref 0 (Reported) Entered as Reported by: KARAN SHELL on 05/28/201342 Last Taken: Unknown Dose on 05/25/20 Last Action: New Order on 05/28/201342 by KARAN SHELL Scheduled PRN Hydrocodone Bit/Acetaminophen (Hydrocodone-Apap 7.5-325/15 Soln ) 15 Ml Solution, 10 ML PO PRN Q6HRS PRN for MODERATE PAIN, #300 Prescribed by: Carl Jordan on 06/05/20 0907 Discontinued Medications Omeprazole (Omeprazole) 20 Mg Capsule.dr, 1 CAP PO DAILY for GERD, #30 Ref 5 (Reported) Entered as Reported by: KARAN SHELL on 05/28/20 134 Last Taken: Unknown Dose on 06/01/20 0500 Last Action: Last Taken Edited on 06/01/20642 by KRISTINA HAMILTON Justicifation of Admission Dx: Justifications for Admission: Justification of Admission Dx: Yes CARL JORDAN COUNSELING [employer]PARTMENT CHAIR Jun 09, 2020 11:25
== END 2020-06-06 11:30 | disposition home or self-care (01) | DRG 326 ==
LOC: SURG 06:15 → EDUNIT# 07:30 → INTOOBSV 11:32 → 4 NORTH 11:32 → OBSVTOIN 06-03 14:20
PROVIDERS: ADMIT Surgery; ATTEND Surgery
PROC: 0DV44ZZ Restriction of Esophagogastric Junction, Percutaneous Endoscopic Approach (ICD-10-PCS; 2020-06-01)
PROC: 0BUT4JZ Supplement Diaphragm with Synthetic Substitute, Percutaneous Endoscopic Approach (ICD-10-PCS; principal; 2020-06-01 07:30)
DX: K44.9 Diaphragmatic hernia without obstruction or gangrene (principal); J96.01 Acute respiratory failure with hypoxia; J98.11 Atelectasis; K21.9 Gastro-esophageal reflux disease without esophagitis; I50.9 Heart failure, unspecified; J20.9 Acute bronchitis, unspecified; Z87.891 Personal history of nicotine dependence; Z88.8 Allergy status to other drugs, medicaments and biological substances; Z79.899 Other long term (current) drug therapy
CPT/HCPCS: 36415; 71046; 71275; 80048; 84484; 88302; 93306; 94618; A7015; C1781; G0378; G0379; J0330; J0690; J1100; J1170; J1940; J2270; J2405; J2704; J2710; J3010; J3490; J7030; J7120; Q9967; 97110-GP; 97116-GP; 97530-GO; 97530-GP